=== PATIENT | female | born 1980 | race Caucasian/White ===

== ENCOUNTER 2021-02-05 12:23 | Emergency (ER) | payer OTHER, SELFPAY ==
[2021-02-05 13:19] VITALS: BP 116/67; PULSE 77; RESP 18; TEMP 36.9; O2SAT 98; BMI 29.1
[2021-02-05 14:31] LABS: Appearance Urine CLOUDY; Color Urine YELLOW; Glucose Urine UA NEG (NEG); Leukocyte Esterase Urine 1+ (NEG); Nitrite Urine NEG (NEG); PH 5.5 (5.0-8.0); Specific Gravity - Urine >= 1.030 (1.005-1.025); UACC Culture Trigger YES; Urine Blood 3+ (NEG); Urine Ketones NEG (NEG); Urine Protein 2+ MG/DL (NEG-TRACE)
[2021-02-05 14:41] LABS: Bacteria Urine 1+ /LPF; Squamous Epithelial Cell Urine 1+ /LPF; WBC Urine 30-49 /HPF (0-4)
--- NOTE | 2021-02-05 14:54 | ED.FEMALEGU ---
HPI - Female Genitourinary General Chief complaint: Urogenital-Female <JACI Keyes - Last Filed: 02/05/21 16:22> Stated complaint: QUEST YEAST INFECTION <JACI Keyes Last Filed: 02/05/21 16:22> Time Seen by Provider: 02/05/21 13:49 <JACI Keyes Last Filed: 02/05/21 16:22> Source: patient <JACI Keyes Last Filed: 02/05/21 16:22> Mode of arrival: ambulatory <JACI Keyes Last Filed: 02/05/21 16:22> History of Present Illness HPI Narrative: 40-year-old female with no significant past medical history presenting to the ED complaining dysuria and hematuria since yesterday. Patient reports concern for yeast infection. States she is sexually active with 1 partner, denies concern for STI. Denies vaginal lesions, vaginal discharge, vaginal bleeding, abdominal pain, flank pain, nausea, vomiting <JACI Keyes Last Filed: 02/05/21 16:22> MD elicited complaint: dysuria <JACI Keyes Last Filed: 02/05/21 16:22> Related Data Home medications: Previous Rx's Medication Instructions Recorded doxycycline hyclate 100 mg tablet 100 mg PO BID 7 Days #14 tab 02/05/21 fluconazole 150 mg tablet 150 mg PO Q3D 1 Days #1 tab 02/05/21 (Diflucan) <JACI Keyes Last Filed: 02/05/21 16:22> Allergies/Adverse reactions: Allergies Allergy/AdvReac Type Severity Reaction Status Date / Time Penicillins Allergy Hives Verified 02/05/21 13:21 <JACI Keyes Last Filed: 02/05/21 16:22> Review of Systems Review of Systems: Constitutional: No Fever, No Chills, No Fatigue, No Malaise ENT/Mouth: No Ear Pain, No Nasal Congestion, No Hoarseness, No sore throat, No Rhinorrhea, No Swallowing Difficulty Eyes: No Eye Pain, No Swelling, No Redness, No Discharge, No Vision Changes Cardiovascular: No Chest Pain, No SOB, No Dyspnea on Exertion, No Orthopnea, No Edema, No Palpitations Respiratory: No Cough, No Sputum, No Dyspnea Gastrointestinal: No Nausea, No Vomiting, No Diarrhea, No Constipation, No Abdominal pain Genitourinary: + Dysuria, No Urinary Frequency, + Hematuria, No Flank Pain, No vaginal discharge, No vaginal lesions Musculoskeletal: No joint pain, No Myalgias, No Joint Swelling Skin: No Skin Lesions, No rash Neuro: No Weakness, No Loss of Consciousness, No Headache <JACI Keyes - Last Filed: 02/05/21 16:22> Yes all other systems are reviewed and are negative <JACI Keyes - Last Filed: 02/05/21 16:22> [facility] Past Medical History Attestation statement: The following information was validated with the patient. <JACI Keyes - Last Filed: 02/05/21 16:22> Medical History: Medical History (Updated 02/06/21 @ 00:01 by Eric Pulido) No known health problems <JACI Keyes - Last Filed: 02/05/21 16:22> Social History Social History: Social History Advance Directives: No Advance Directives Information Provided: No Patient : No <JACI Keyes - Last Filed: 02/05/21 16:22> Physical Exam Vital Signs: Vital Signs: Last Vital Signs Temp 98.4 F 02/05/21 13:19 Pulse 77 02/05/21 13:19 Resp 18 02/05/21 13:19 BP 116/67 02/05/21 13:19 Pulse Ox 98 02/05/21 13:19 Body Mass Index 29.1 <JACI Keyes - Last Filed: 02/05/21 16:22> Vital Signs: Last Vital Signs Temp 98.4 F 02/05/21 13:19 Pulse 77 02/05/21 13:19 Resp 18 02/05/21 13:19 BP 116/67 02/05/21 13:19 Pulse Ox 98 02/05/21 13:19 Body Mass Index 29.1 <Curt Vela MD - Last Filed: 02/06/21 01:45> Const: General: cooperative and healthy appearing <JACI Keyes - Last Filed: 02/05/21 16:22> Orientation/consciousness: patient oriented x3 <JACI Keyes - Last Filed: 02/05/21 16:22> Limitations: no limitations <Soledadjosefa German PA - Last Filed: 02/05/21 16:22> HENMT: Head: Yes normal to inspection <Soledad German PA - Last Filed: 02/05/21 16:22> Ears: hearing grossly normal bilaterally <Soledadjosefa German PA - Last Filed: 02/05/21 16:22> General nose exam: Normal external nose present <Soledad German PA - Last Filed: 02/05/21 16:22> Face and sinus: Yes normal facial exam <Soledad German PA - Last Filed: 02/05/21 16:22> Eyes: General: appearance normal, both eyes and all related structures <Soledad German PA - Last Filed: 02/05/21 16:22> EOM: EOMs intact bilaterally <Soledadjosefa German PA - Last Filed: 02/05/21 16:22> Neck: Neck: Yes normal visual inspection and Yes no meningeal signs <Soledad German PA - Last Filed: 02/05/21 16:22> Resp: Effort & Inspection: normal respiratory effort and no respiratory distress <Soledad German PA - Last Filed: 02/05/21 16:22> Cardio: Rate: regular rate <Soledad German PA - Last Filed: 02/05/21 16:22> GI: Inspection: Yes normal to inspection <Soledad German PA - Last Filed: 02/05/21 16:22> Palpation (GI): Soft to palpation, nontender, no guarding and not rigid <Soledad German PA - Last Filed: 02/05/21 16:22> : Other: White and clear vaginal discharge noted. No CMT. Mild right adnexal pressure. No fullness/masses <Soledad German PA - Last Filed: 02/05/21 16:22> General: Yes no CVA tenderness <Soledad German PA - Last Filed: 02/05/21 16:22> Speculum Exam - Vagina: nontender <Soledad German PA - Last Filed: 02/05/21 16:22> Speculum Exam - Cervix: nontender <Soledad German PA - Last Filed: 02/05/21 16:22> Bimanual exam- vagina & uterus: No Cervical tenderness present <JACI Keyes - Last Filed: 02/05/21 16:22> Back/Spine/Pelvis: Back: no CVA tenderness <JACI Keyes - Last Filed: 02/05/21 16:22> Skin: Rashes: no rashes <JACI Keyes - Last Filed: 02/05/21 16:22> Wounds: no wounds <JACI Keyes - Last Filed: 02/05/21 16:22> Neuro: General: patient oriented x3 and no meningeal signs <JACI Keyes - Last Filed: 02/05/21 16:22> Gait exam (Neuro): Normal gait present <JACI Keyes - Last Filed: 02/05/21 16:22> Extrem: General: Yes normal to inspection <JACI Keyes - Last Filed: 02/05/21 16:22> Course Course Course Narrative: -UA with 30-49 wbc's, 1+ leuk esterase, negative nitrates, likely from STI/yeast rather than UTI. <JACI Keyes - Last Filed: 02/05/21 16:22> MDM - Female Genitourinary MDM Narrative Medical decision making narrative: 40-year-old female with no significant past medical history presenting to the ED complaining dysuria and hematuria since yesterday. On exam VSS, NAD/well-appearing, abdomen soft/nontender, no CVAT. On pelvic white/clear vaginal discharge noted. Mild right adnexal pressure elicited, no CMT/pain. Concern for STI/yeast infection. Exam not consistent with PID. Patient is agreeable to. STI treatment in the ED. Will give 1st dose of Diflucan, ceftriaxone, and doxycycline in the ED Plan: STI testing, UA <JACI Keyes - Last Filed: 02/05/21 16:22> Medical Records Attestation: I reviewed the patient's medical records. <JACI Keyes - Last Filed: 02/05/21 16:22> Lab Data Attestation: I reviewed the patient's lab results. <JACI Keyes - Last Filed: 02/05/21 16:22> Labs: Lab Results 02/05/21 Range/Units 14:22 Urine Color YELLOW Urine Appearance CLOUDY Urine pH 5.5 (5.0-8.0) Ur Specific [place] >= 1.030 H (1.005-1.025) Urine Protein 2+ H (NEG-TRACE) MG/DL Urine Glucose (UA) NEG (NEG) MG/DL Urine Ketones NEG (NEG) MG/DL Urine Blood 3+ H (NEG) Urine Nitrite NEG (NEG) Ur Leukocyte Esterase 1+ H (NEG) Urine RBC 10-14 H (0) /HPF Urine WBC 30-49 H (0-4) /HPF Ur Squamous Epith Cells 1+ /LPF Urine Bacteria 1+ /LPF <JACI Keyes - Last Filed: 02/05/21 16:22> Lab Results 02/05/21 Range/Units 14:22 Urine Color YELLOW Urine Appearance CLOUDY Urine pH 5.5 (5.0-8.0) Ur Specific [place] >= 1.030 H (1.005-1.025) Urine Protein 2+ H (NEG-TRACE) MG/DL Urine Glucose (UA) NEG (NEG) MG/DL Urine Ketones NEG (NEG) MG/DL Urine Blood 3+ H (NEG) Urine Nitrite NEG (NEG) Ur Leukocyte Esterase 1+ H (NEG) Urine RBC 10-14 H (0) /HPF Urine WBC 30-49 H (0-4) /HPF Ur Squamous Epith Cells 1+ /LPF Urine Bacteria 1+ /LPF <Curt Vela MD - Last Filed: 02/06/21 01:45> Discharge Plan Discharge Clinical Impression: STI (sexually transmitted infection) <JACI Keyes - Last Filed: 02/05/21 16:22> Patient Disposition: Home, Self-Care <JACI Keyse - Last Filed: 02/05/21 16:22> Instructions: Vaginal Discharge (ED) <JACI Keyes - Last Filed: 02/05/21 16:22> Additional Instructions: You were tested and treated for sexually transmitted infections today in the ED The results should be back in 2 days. Please refrain from any sexual contact until you know the results of her cultures. Once results are back inform her partner. They can be tested and treated as well You were treated for gonorrhea and chlamydia. Doxycycline is the finishing treatment for chlamydia, take as prescribed. Avoid the sun while in doxycycline it can make you prone to sunburn Diflucan as treatment for yeast infection. You were given 1st dose of treatment in the emergency room, this should treat it however if you still have persistent symptoms in 3 days please take this additional dose Please follow-up with OBGYN If her symptoms persist or worsen, he develop abdominal pain, back pain, fever, reporting any pee please return to the ED <JACI Keyes - Last Filed: 02/05/21 16:22> Prescriptions: New doxycycline hyclate 100 mg tablet 100 mg PO BID 7 Days Qty: 14 RF: 0 fluconazole [Diflucan] 150 mg tablet 150 mg PO Q3D 1 Days Qty: 1 RF: 0 <JACI Keyes - Last Filed: 02/05/21 16:22> Referrals: Armani Billy MD [Physician] - 5 days <JACI Keyes - Last Filed: 02/05/21 16:22> Interventions: ED Discharge Assessment Last Done: 02/05/21 16:15 <JACI Keyes - Last Filed: 02/05/21 16:22> Discharge Date/Time: 02/05/21 16:16 <JACI Keyes - Last Filed: 02/05/21 16:22>
[2021-02-05] MEDS: Fluconazole 150 MG TABLET PO (15:51)
[2021-02-05] MEDS: cefTRIAXone sodium 500 MG, Lidocaine HCl 1 % MPF 1 ML IM (15:51)
[2021-02-06 03:36] LABS: CT PCR NOT DETECTED (Not Detect.); NG PCR NOT DETECTED (Not Detect.)
[2021-02-06 11:24] LABS: BV Int Neg Control Negative (Negative); BV Int Pos Control Positive (Positive)
== END 2021-02-05 16:16 | disposition home or self-care (01) ==
PROVIDERS: Physician Assistant; Emergency Provider Emergency Medicine
DX: A64 Unspecified sexually transmitted disease (principal); R30.0 Dysuria; R31.9 Hematuria, unspecified; Z79.899 Other long term (current) drug therapy; Z20.2 Contact with and (suspected) exposure to infections with a predominantly sexual mode of transmission
CPT/HCPCS: 81001; 87086; 87088; 87186; 87480; 87491; 87510; 87591; 87660; 96372; 99284; J0696

== ENCOUNTER 2023-10-30 20:11 | Emergency (ER) | payer SELFPAY ==
--- NOTE | ~2023-10-30 | US_ITS ---
EXAMINATION: US VENOUS ULTRASOUND WITH DOPPLER LOWER EXTREMITY, LEFT CLINICAL INFORMATION: Left lower extremity pain. COMPARISON: None available. TECHNIQUE: Ultrasound of the deep veins is performed from the hip to the calf with compression sonography and color and pulse Doppler assessment. Spectral analysis with color-flow imaging is performed. FINDINGS: There is normal venous compression and respiratory variation and augmented flow. The visualized common femoral vein, superficial femoral vein, profunda femoral vein, popliteal vein, and the trifurcation region shows no evidence of deep venous thrombosis. There is no significant popliteal fossa cyst. If the patient's symptoms persist, followup ultrasound in 5 days 7 days might be of value to exclude proximal propagation from a non-visualized calf vein. US/US venous duplex LE IMPRESSION: No DVT demonstrated in the left lower extremity.
--- NOTE | ~2023-10-30 | XR_ITS ---
EXAMINATION: XR LUMBOSACRAL SPINE CLINICAL INFORMATION: Left lumbar spinal pain. COMPARISON: None available. TECHNIQUE: Three views of the lumbosacral spine. FINDINGS: Grade 2 anterolisthesis at L5-S1 with L5 pars defects. No evidence of acute compression deformity. Moderate to severe intervertebral disc height loss and facet arthropathy with neural foraminal encroachment at L5-S1. Symmetric SI joints. No significant paraspinal soft tissue abnormality. Right upper quadrant surgical clips. XR/XR lumbar spine 2-3V IMPRESSION: 1. Grade 2 anterolisthesis at L5-S1 with L5 pars defects. 2. Moderate to severe lumbar spondylosis. 3. No acute compression deformity.
[2023-10-30 20:25] VITALS: BP 154/97; PULSE 67; RESP 18; TEMP 37; O2SAT 99; BMI 29.6
--- NOTE | 2023-10-30 20:28 | ED_ITS ---
HPI - General Adult General Chief complaint: General Medical Stated complaint: back/side pain and down the left leg Time Seen by Provider: 10/31/23 04:43 Source: patient Mode of arrival: ambulatory Limitations: no limitations History of Present Illness ED Provider: Dr. Oma Palmer HPI narrative: Patient comes to the emergency room complaining of lower back pain radiating towards the left heel. Patient denies any recent trauma. Patient denies heavy lifting. 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 Patient denies any urinary/fecal incontinence/retention. Related Data Previous Rx's ?Medication ?Instructions ?Recorded doxycycline hyclate 100 mg tablet 100 mg PO BID 7 days #14 tabs 02/05/21 fluconazole 150 mg tablet 150 mg PO Q3D 1 day #1 tab 02/05/21 (Diflucan) metronidazole 500 mg tablet 500 mg PO BID 7 days #14 tabs 02/08/21 (Flagyl) nitrofurantoin 100 mg PO Q12H 7 days #14 caps 02/09/21 monohydrate/macrocrystals 100 mg capsule (Macrobid) cyclobenzaprine 10 mg tablet 10 mg PO TID PRN muscle spasm #7 10/31/23 tabs ketorolac 10 mg tablet 10 mg PO BID #8 tabs 10/31/23 nitrofurantoin 100 mg PO Q12H 5 days #10 caps 10/31/23 monohydrate/macrocrystals 100 mg capsule (Macrobid) Allergies Allergy/AdvReac Type Severity Reaction Status Date / Time Penicillins Allergy Hives Verified 10/30/23 20:27 Review of Systems 2 Review of Systems: Constitutional : No Weight loss, No Fever, No Chills, No Night Sweats, No Fatigue, No Malaise ENT/Mouth : No Hearing loss, No Ear Pain, No Nasal Congestion, No Sinus Pain, No Hoarseness, No sore throat, No Rhinorrhea, No Swallowing Difficulty Eyes: No Eye Pain, No Swelling, No Redness, No Foreign Body, No Discharge, No Vision Changes Cardiovascular : No Chest Pain, No SOB, No Dyspnea on Exertion, No Orthopnea, No Edema, No Palpitations Respiratory : No Cough, No Sputum, No Wheezing, No Smoke Exposure, No Dyspnea Gastrointestinal : No Nausea, No Vomiting, No Diarrhea, No Constipation, No abdominal Pain, No Hematochezia, No Melena Genitourinary : no irregular bleeding, No Dysuria, No Urinary Frequency, No Hematuria, No Urinary Incontinence, No Urgency, No Flank Pain, No Urinary Flow Changes, No Hesitancy Musculoskeletal : Complaining of lower back pain with shooting pain radiating down the left leg to the heel No joint pain, No Myalgias, No Joint Swelling Skin : No Skin Lesions, No rash Neuro : No Weakness, No Numbness, No Paresthesias, No Loss of Consciousness, No Dizziness, No Headache Psych : No Anxiety/Panic, No Depression, No SI/HI/AH/VH, No Social Issues, Heme/Lymph: No Bruising, No Bleeding,No Lymphadenopathy Endocrine : No Polyuria, No Polydipsia, No Temperature Intolerance [facility] Past Medical History Medical History No known health problems Social History Social History Smoked in Last 30 Days: Yes Use of substances other than those prescribed or required for medical reasons: No Advance Directives: No Advance Directives Information Provided: No Do you have a plan to hurt others: No Plan Patient : No Physical Exam ED Vital Signs: Vital Signs - 24 hr 10/30/23 20:25 10/31/23 01:00 Temperature 98.6 F 97.2 F Pulse Rate 67 52 Respiratory Rate 18 17 Blood Pressure 154/97 H 122/71 Pulse Oximetry 99 98 Oxygen Delivery Method Room Air Room Air BMI result Body Mass Index 29.6 Const Other: Appearance: Alert. Oriented X3. No acute distress. Eyes: Pupils equal, round and reactive to light. ENT: Pharynx normal. Neck: Normal inspection. Neck supple. No lymph nodes noted. No crepitus CVS: Normal heart rate and rhythm. Pulses normal. Normal S1 and S2 Respiratory: No respiratory distress. Breath sounds normal. No Wheezing. No rales Abdomen: Soft and nontender. No rigidity. No distention. Back: No pain to palpation in thoracic or lumbar spine, positive straight leg raise test on the left negative on the right Skin: Skin warm and dry. Normal skin color. Normal skin turgor. Extremities: No lower extremity edema. No Lacerations. No Rash Neuro: Oriented X 3. No motor deficit. No sensory deficit. Moving all extremities. No slurred speech. CN 2 through 12 grossly intact Psych: calm, cooperative, normal affect Course Course Course Narrative: This is a Rapid Medical Examination (RME) performed by Anitha Sherwood PA-C in triage. Full HPI, ROS, assessment and treatment plan per primary provider in the Main ED. 39-year-old female with no significant past medical history presents to the ED today for evaluation of left lower back pain xdays. 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 She does not typically get out of her vehicle until she reaches her destination. Admits pain initially began to her left low back, now extending along the backside of her left leg and into her calf. She does not endorse calf pain. Pain worse with lying down. History of sciatica. Denies chest pain, shortness of breath, hemoptysis. +left calf tenderness. no LLE swelling. ambulating with steady gait. No midline spinous tenderness or step off deformity. minimal left paraspinal mm tenderness. Plan: labs, UA, imaging Medical Decision Making Medical Decision Making [facility] Narrative: -my interpretation of labs: Normal hematology and chemistry, positive for UTI. However , patient is asymptomatic. -reviewing patient's previous labs, patient has similar looking urinalysis in 2020, was positive for bacterial growth, E coli. Patient will be treated with Macrobid. -I discussed the physical exam with the patient, patient likely has sciatica versus herniated disc. Patient will need physical therapy through her primary care physician. -patient was given IM ketorolac and dexamethasone Differential Diagnosis Differential Diagnoses: The differential diagnosis associated with the presentation includes (As above) Lab Data [facility] Lab Attestation statement: I reviewed the patient's lab results. 10/30/23 20:47 10/30/23 20:47 Labs: Lab Results 10/30/23 10/31/23 Range/Units 20:47 02:51 WBC 8.4 (4.8-10.8) X10*3/uL RBC 4.41 (4.20-5.50) X10*6/uL Hgb 12.7 (12.0-16.0) g/dl Hct 36.0 L (37.0-47.0) % MCV 81.6 (80.0-98.0) fL MCH 28.8 (27.0-33.0) pg MCHC 35.3 H (31.0-35.0) g/dl RDW 12.5 (11.0-16.0) % Plt Count 362 (160-400) X10*3/uL MPV 9.6 (9.4-12.3) fL Immature Gran % (Auto) 0.2 (0.0-0.4) % Neut % (Auto) 50.5 (45-73) % Lymph % (Auto) 42.4 H (20-40) % [place] % (Auto) 5.7 (2-11) % Eos % (Auto) 0.8 (0-4) % Baso % (Auto) 0.4 (0-2) % Lymph # (Auto) 3.6 (1.2-4.9) X10*3/uL [place] # (Auto) 0.5 (0.1-1.2) X10*3/uL Eos # (Auto) 0.1 (0.0-0.4) X10*3/uL Baso # (Auto) 0.0 (0.0-0.2) X10*3/uL Abs Immat Gran (auto) 0.02 (0.00-0.03) X10*3/uL Absolute Neuts (auto) 4.2 (2.0-8.3) x10*3/uL Absolute Nucleated RBC 0.000 (0.0-0.012) X10*3/uL Nucleated RBC % (auto) 0.0 (0.0-0.2) /100WBC Sodium 142 (135-145) mmol/L Potassium 3.3 (3.3-5.1) mmol/L Chloride 108 (96-108) mmol/L Carbon Dioxide 24 (22-29) mmol/L Anion Gap 13 (12-20) BUN 8 L (9-16) mg/dL Creatinine 0.71 (0.5-1.4) mg/dL Estim Creat Clear Calc 98.5 Estimated GFR > 60 Random Glucose 153 H (60-115) mg/dL Calcium 9.0 (8.4-10.2) mg/dL Magnesium 1.9 (1.6-2.6) mg/dL Total Bilirubin 0.3 (0.0-1.0) mg/dL AST 12 (5-31) U/L ALT 14 (0-31) U/L Alkaline Phosphatase 72 (39-117) U/L Total Protein 7.6 (6.5-8.0) g/dL Albumin 3.9 (3.5-5.0) g/dL Urine Color Yellow Urine Appearance Cloudy Urine pH 5.5 (5.0-9.0) Ur Specific [place] 1.025 (1.005-1.025) Urine Protein Negative (Neg-Trace) mg/dL Urine Glucose (UA) Negative (Negative) mg/dL Urine Ketones Trace (Negative) mg/dL Urine Blood Negative (Negative) Urine Nitrite Negative (Negative) Ur Leukocyte Esterase Small (1+) H (Negative) Urine RBC 0-2 (0-2) /HPF Urine WBC 6-10 H (0-5) /HPF Ur Squamous Epith Cells 6-10 (0-2) /HPF Urine Bacteria 1+ (None Seen) Hyaline Casts 3-5 (0-2) /LPF Urine Test NEGATIVE (NEGATIVE) Independent Interpretation I performed an independent interpretation of an: Plain X-Ray and Ultrasound Radiology Impression Discussion of test interpretation with radiology: I have reviewed the radiologist's reading. Radiologist Impression: 1. Grade 2 anterolisthesis at L5-S1 with L5 pars defects. 2. Moderate to severe lumbar spondylosis. 3. No acute compression deformity. FINDINGS: There is normal venous compression and respiratory variation and augmented flow. The visualized common femoral vein, superficial femoral vein, profunda femoral vein, popliteal vein, and the trifurcation region shows no evidence of deep venous thrombosis. There is no significant popliteal fossa cyst. If the patient's symptoms persist, followup ultrasound in 5 days 7 days might be of value to exclude proximal propagation from a non-visualized calf vein. US/US venous duplex LE IMPRESSION: No DVT demonstrated in the left lower extremity. Discharge Plan Discharge Clinical Impression: Sciatica, UTI (urinary tract infection) Patient Disposition: Home, Self-Care Instructions: Urinary Tract Infection in Women (ED), Sciatica (ED) Additional Instructions: Do not use cyclobenzaprine and drive or use machinery, this medication will make you drowsy. Please follow-up with your primary care physician tomorrow. If you have any worsening or new symptoms, please return to the emergency room or call 911 Prescriptions: New ketorolac 10 mg tablet 10 mg PO BID Qty: 8 0RF Rx Instructions: maximum total duration of 5 days from all oral, intranasal, or parenteral formulations cyclobenzaprine 10 mg tablet 10 mg PO TID PRN (Reason: muscle spasm) Qty: 7 0RF Rx Instructions: Do not drive after taking this medication nitrofurantoin monohyd/m-cryst [Macrobid] 100 mg capsule 100 mg PO Q12H 5 Days Qty: 10 0RF Rx Instructions: must administer with a meal/food No Action doxycycline hyclate 100 mg tablet 100 mg PO BID 7 Days Qty: 14 0RF fluconazole [Diflucan] 150 mg tablet 150 mg PO Q3D 1 Days Qty: 1 0RF Rx Instructions: Take in 3 days if symptoms still persist metronidazole [Flagyl] 500 mg tablet 500 mg PO BID 7 Days Qty: 14 0RF nitrofurantoin monohyd/m-cryst [Macrobid] 100 mg capsule 100 mg PO Q12H 7 Days Qty: 14 0RF Rx Instructions: must administer with a meal/food Stand Alone Forms: Work/School Release Print Language: Lebanese
[2023-10-30 20:50] LABS: MANUAL DIFF FLAG NO
[2023-10-30 20:51] LABS: Basophils Percent Auto 0.4 % (0-2); Eosinophils Absolute Auto 0.1 X10*3/uL (0.0-0.4); Eosinophils Percent Auto 0.8 % (0-4); Hemoglobin 12.7 g/dl (12.0-16.0); Imm Gran Abs Auto 0.02 X10*3/uL (0.00-0.03); Imm Gran Pct Auto 0.2 % (0.0-0.4); Lymphocytes Absolute Auto 3.6 X10*3/uL (1.2-4.9); Lymphocytes Percent Auto 42.4 % (20-40); Mean Corpuscular HGB Conc 35.3 g/dl (31.0-35.0); Mean Corpuscular Hemoglobin 28.8 pg (27.0-33.0); Mean Corpuscular Volume 81.6 fL (80.0-98.0); Mean Platelet Volume 9.6 fL (9.4-12.3); Monocytes Absolute Auto 0.5 X10*3/uL (0.1-1.2); Monocytes Percent Auto 5.7 % (2-11); Neutrophils Absolute Auto 4.2 x10*3/uL (2.0-8.3); Neutrophils Percent Auto 50.5 % (45-73); Platelet Count 362 X10*3/uL (160-400); Red Blood Count 4.41 X10*6/uL (4.20-5.50); Red Cell Distribution Width 12.5 % (11.0-16.0); White Blood Count 8.4 X10*3/uL (4.8-10.8)
[2023-10-30 21:07] LABS: Alanine Aminotransferase 14 U/L (0-31); Albumin Level 3.9 g/dL (3.5-5.0); Alkaline Phosphatase 72 U/L (39-117); Anion Gap 13 (12-20); Aspartate Amino Transferase 12 U/L (5-31); Bilirubin Total 0.3 mg/dL (0.0-1.0); Blood Urea Nitrogen 8 mg/dL (9-16); Carbon Dioxide 24 mmol/L (22-29); Chloride 108 mmol/L (96-108); Creatinine Clr Calc Pharmacy 98.5; Estimated Glomerular Filt Rate > 60; Glucose Random 153 mg/dL (60-115); Magnesium 1.9 mg/dL (1.6-2.6); Potassium 3.3 mmol/L (3.3-5.1); Sodium 142 mmol/L (135-145); Total Protein 7.6 g/dL (6.5-8.0)
[2023-10-31 01:00] VITALS: BP 122/71; PULSE 52; RESP 17; TEMP 36.2; O2SAT 98
[2023-10-31 03:00] LABS: Appearance Urine Cloudy; Color Urine Yellow; Glucose Urine UA Negative (Negative); Leukocyte Esterase Urine Small (1+) (Negative); Nitrite Urine Negative (Negative); PH 5.5 (5.0-9.0); Specific Gravity - Urine 1.025 (1.005-1.025); UMIC TRIGGER UACC YES; Urine Blood Negative (Negative); Urine Ketones Trace mg/dL (Negative); Urine Protein Negative (Neg-Trace)
[2023-10-31 03:01] LABS: UPreg QC Valid YES; Urine Pregnancy NEGATIVE (NEGATIVE)
[2023-10-31 03:02] LABS: Bacteria Urine 1+ (None Seen); RBC Urine 0-2 /HPF (0-2); UACC Culture Trigger YES
[2023-10-31] MEDS: dexAMETHasone sod phosphate 4 MG/ML VIAL 6 MG IM (05:26)
[2023-10-31] MEDS: Nitrofurantoin Monohyd/M-Cryst 100 MG CAPSULE PO (05:26)
[2023-10-31] MEDS: Ketorolac Tromethamine 60 MG/2 ML VIAL IM (05:31)
[2023-10-31 05:36] VITALS: BP 118/60; PULSE 51; RESP 16; TEMP 36.2; O2SAT 98
== END 2023-10-31 05:38 | disposition home or self-care (01) ==
PROVIDERS: Physician Assistant Medical; Emergency Provider Emergency Medicine
DX: N39.0 Urinary tract infection, site not specified (principal); M54.30 Sciatica, unspecified side; M54.50 Low back pain, unspecified; M79.662 Pain in left lower leg
CPT/HCPCS: 36415; 72100; 80053; 81001; 81003; 81025; 83735; 85025; 87086; 93971; 96372; 99284; J1100; J1885